=== PATIENT | female | born 1990 | race Caucasian/White ===

== ENCOUNTER 2016-12-14 08:58 | Emergency (ER) | payer OTHER | END 2016-12-14 11:25 | disposition home or self-care (01) | LOC: ER1 08:58 | DX: N39.0 Urinary tract infection, site not specified (principal) | CPT/HCPCS: 81001; 84703; 99284; Q0162 ==

== ENCOUNTER → 2021-01-20 | Outpatient (CLI) | payer OTHER ==
[2021-01-20 09:16] LABS: HEMOGLOBIN 11.2 gm/dl (12.3-15.3); RED BLOOD COUNT 4.7 M/UL (4.00-5.10); WHITE BLOOD COUNT 5.2 K/UL (4.5-11.0)
[2021-01-20 09:21] LABS: BUN/CREATININE RATIO 12 (0-10)
== END ==
LOC: LAB 07:44
PROVIDERS: Internal Medicine
DX: Z13.1 Encounter for screening for diabetes mellitus (principal); Z13.220 Encounter for screening for lipoid disorders; E55.9 Vitamin D deficiency, unspecified; F32.9 Major depressive disorder, single episode, unspecified; R53.83 Other fatigue; Z79.899 Other long term (current) drug therapy
CPT/HCPCS: 36415; 80053; 80061; 82607; 82746; 84439; 84443; 85025